=== PATIENT | female | born 1955 | race Caucasian/White ===

== ENCOUNTER 2024-12-08 10:47 | Emergency (ER) | payer MEDICARE, SELFPAY ==
[2024-12-08 11:02] VITALS: BP 146/84; PULSE 100; RESP 18; TEMP 36.9; O2SAT 99
--- NOTE | 2024-12-08 11:25 | ED.SKABFB ---
HPI - Skin/Abscess/Foreign Bdy General Chief complaint: Skin/Abscess/Foreign Body Stated complaint: spider bite Time Seen by Provider: 12/08/24 11:05 Source: patient and RN notes reviewed Mode of arrival: ambulatory Limitations: no limitations History of Present Illness HPI narrative: 69-year-old female presents Express Care complaining of possible spider bite to her left forearm. Patient noticed that this morning. Patient denies being bit by anything. Patient denies any falls or injuries. Patient reports that purple and nontender. Patient denies any fevers, body aches, chills, nausea, vomiting, headaches, vision changes, chest pain, breathing problems, redness, swelling, joint pain, muscle aches, or any other symptoms. Patient denies any significant past medical problems. Patient denies any recent travel or hiking. Patient denies any tick bites. Related Data Allergies Allergy/AdvReac Type Severity Reaction Status Date / Time No Known Allergies Allergy Verified 12/08/24 11:08 Review of Systems Review of Systems: CONSTITUTIONAL: Denies fever, chills, or sweats. EYES: Denies visual changes, redness, or discharge. ENT: Denies rhinorrhea, congestion, sore throat, or otalgia. CARDIOVASCULAR: Denies chest pain, palpitations, or edema. RESPIRATORY: Denies cough or dyspnea. GASTROINTESTINAL: Denies abdominal pain, nausea, vomiting, or diarrhea. GENITOURINARY: Denies dysuria or hematuria. SKIN: Denies rash or itching. Positive for wound. MUSCULOSKELETAL: Denies back pain, joint pain, or myalgia. NEUROLOGIC: Denies headache, numbness, or weakness. PSYCHIATRIC: Denies anxiety or depression. All other systems reviewed are negative, except as documented in HPI. PMFSH Comments At the time of my signature, I reviewed and agree with the nursing past medical, surgical, social, and family history. There is no relevant family history pertinent to the patient complaint. Exam Narrative: GENERAL: This is a well-nourished, well-developed adult, in no apparent distress. They are non ill-appearing, nontoxic appearing. HEAD: normocephalic, atraumatic. EYES: Sclera clear/white. Conjunctiva normal. Vision is grossly intact. Extraocular movements intact EARS: External ears normal,Hearing grossly intact. NOSE: External nose normal THROAT: Mucous membranes moist, NECK: Neck supple, . CARDIOVASCULAR: Regular rate and rhythm RESPIRATORY: Respiratory rate normal, respiratory effort nonlabored, no respiratory distress SKIN: Left forearm: For is present to mid forearm. Central pallor present and slightly raised. No Central clearing. No erythema or swelling. Nontender to palpate. No area of fluctuance, no induration. No exudate. Measuring approximately 2.5 cm x 2.5 cm. NEURO: awake, alert, and oriented to person, place and time. There were no obvious focal neurologic abnormalities. EXTREMITIES: No joint tenderness, effusion, or edema noted. Course Course Emergency Course: Portions of this record may have been created with voice recognition software Level of Care: Express Care Visit Vital Signs Vital signs: Vital Signs Temperature 98.5 F 12/08/24 11:02 Pulse Rate 100 12/08/24 11:02 Respiratory Rate 18 12/08/24 11:02 Blood Pressure 146/84 H 12/08/24 11:02 Pulse Oximetry 99 12/08/24 11:02 Oxygen Delivery Room Air 12/08/24 11:02 Temperature 98.5 F 12/08/24 11:02 Pulse Rate 100 12/08/24 11:02 Respiratory Rate 18 12/08/24 11:02 Blood Pressure 146/84 H 12/08/24 11:02 Pulse Oximetry 99 12/08/24 11:02 Oxygen Delivery Room Air 12/08/24 11:02 Reviewed MDM - Skin/Abscess/Foreign Bdy MDM Narrative Medical decision making narrative: No evidence of infection. Appears likely to be bruise. No puncture wound identified on wound. Unlikely a spider bite or bug bite. No medical problems. Discussed physical exam findings. Advised supportive measures and signs/symptoms to go to the ER. Pt is appropriate for outpt treatment and f/u. Differential Diagnosis Differential diagnosis: Likely abscess of skin or subcutaneous tissue, allergic reaction to drug and other (Purpura, bruise,) Critical Care Time Critical Care Time Critical Care Time: No Discharge Plan Discharge Clinical Impression: Ecchymosis Patient Disposition: Home Condition: Stable Instructions: Ecchymosis (ED) Additional Instructions: Use steroid cream as directed. Tylenol ibuprofen as needed for pain. Follow instructions on the bottle. Follow-up with PCP in 3-5 days for wound recheck. He developed any fevers, body aches, chills, worsening redness, swelling, pain, green/yellow drainage, joint pain, muscle aches, nausea, vomiting, headaches, vision problems, or any serious concerns please go to the ER immediately Patient Language: Finnish Prescriptions: New triamcinolone acetonide 0.1 % cream 1 applic topical BID 7 Days Qty: 15 0RF Follow-up/Referrals: Darnell Omalley MD [Primary Care Provider, [facility]] Time of Disposition: 11:21
== END 2024-12-08 11:38 | disposition home or self-care (01) ==
PROVIDERS: PCP Family Medicine
DX: R58 Hemorrhage, not elsewhere classified (principal)
CPT/HCPCS: 99213; G0463